=== PATIENT | female | born 1995 | race Two or more races ===

== ENCOUNTER 2022-03-29 05:38 | Emergency (ER) | payer BC, OTHER | END 2022-03-29 07:05 | disposition home or self-care (01) | LOC: JP.ED 05:38 | DX: S93.401A Sprain of unspecified ligament of right ankle, initial encounter (principal); X50.1XXA Overexertion from prolonged static or awkward postures, initial encounter | CPT/HCPCS: 73610-26-RT; 73610-RT; 99283 ==